=== PATIENT | female | born 1950 | race Caucasian/White ===

== ENCOUNTER 2023-07-01 09:14 | Emergency (ER) | payer OTHER, SELFPAY ==
[2023-07-01 09:23] VITALS: BP 176/89; PULSE 72; RESP 16; TEMP 36.4; O2SAT 100
--- NOTE | 2023-07-01 09:44 | ED.URI ---
HPI - URI/Sore Throat General Chief Complaint: Upper Respiratory Infection Stated Complaint: Sinus Pain Time Seen by Provider: 07/01/23 09:31 Source: patient and RN notes reviewed Mode of arrival: ambulatory Limitations: no limitations History of Present Illness HPI Narrative: Patient presents today with a 2 day history of severe headache, sinus pressure, postnasal drip, chest congestion. Denies fever cough. She has tried Sudafed and Tylenol with mild relief and currently rates her headache 6/10. Related Data Home Medications Medication Instructions Recorded Confirmed duloxetine 60 mg capsule,delayed 60 mg PO DAILY 07/01/23 07/01/23 release hydroxychloroquine 200 mg tablet 200 mg PO BID 07/01/23 07/01/23 levothyroxine 125 mcg tablet 125 mcg PO DAILY 07/01/23 07/01/23 simvastatin 20 mg tablet 20 mg PO DAILY 07/01/23 07/01/23 Allergies Allergy/AdvReac Type Severity Reaction Status Date / Time No Known Allergies Allergy Unverified 05/01/15 18:37 Review of Systems Review of Systems: CONSTITUTIONAL: Denies body aches, fever, chills, or sweats. EYES: Denies visual changes, redness, or discharge. ENT: Denies rhinorrhea, sore throat, or otalgia.+ sinus pressure, postnasal drip CARDIOVASCULAR: Denies chest pain, palpitations, or edema. RESPIRATORY: Denies cough or dyspnea.+ chest congestion GASTROINTESTINAL: Denies abdominal pain, nausea, vomiting, or diarrhea. GENITOURINARY: Denies dysuria or hematuria. SKIN: Denies rash, itching, or wounds. MUSCULOSKELETAL: Denies back pain, joint pain, or myalgia. NEUROLOGIC: Denies numbness, tingling, or weakness.+ headache PSYCH: Denies depression or anxiety. [facility] Past Medical History Medical History (Updated 07/01/23 @ 10:15 by Radhika Quintero, [facility], ) High cholesterol Hypothyroidism Comments At time of signature, I have reviewed and agree with nursing past medical, surgical, social and family history unless otherwise noted. Please see nursing chart for further information. There is no relevant family history pertinent to the presenting complaint Exam Narrative: GENERAL: Well-appearing, well-nourished, and in no acute distress. HEAD: Normocephalic, atraumatic. EYES: EOMI. No redness or drainage. Conjunctivae normal. ENT: Mucous membranes pink and moist. Nares mildly congested. No rhinorrhea. TMs normal bilaterally. Throat normal. Uvula midline. NECK: Normal AROM. Supple. No lymphadenopathy. CHEST: No respiratory distress. Clear to auscultation. HEART: Regular rate and rhythm. No murmur appreciated. EXTREMITIES: Normal range of motion. No edema. SKIN: Warm, dry, no rash. Capillary refill normal. Normal skin turgor. NEURO: No focal deficits. Alert and oriented x3. Gait steady. PSYCH: Normal affect. No signs of depression or anxiety. Course Course Level of Care: Express Care Visit Vital Signs Vital signs: Vital Signs Temperature 97.5 F L 07/01/23 09:23 Pulse Rate 72 07/01/23 09:23 Respiratory Rate 16 07/01/23 09:23 Blood Pressure 176/89 H 07/01/23 09:23 Pulse Oximetry 100 07/01/23 09:23 Oxygen Delivery Room Air 07/01/23 09:23 Temperature 97.5 F L 07/01/23 09:23 Pulse Rate 72 07/01/23 09:23 Respiratory Rate 16 07/01/23 09:23 Blood Pressure 176/89 H 07/01/23 09:23 Pulse Oximetry 100 07/01/23 09:23 Oxygen Delivery Room Air 07/01/23 09:23 Reviewed MDM - URI/Sore Throat MDM Narrative Medical decision making narrative: COVID negative. Symptoms likely viral. Will prescribe a short course of some prednisone to help with symptoms. Anticipatory guidance given. Differential Diagnosis Differential diagnosis: Likely upper respiratory infection, sinusitis, viral infection, influenza and other (COVID-19) Lab Data Attestation: I reviewed the patient's lab results. Lab results narrative: COVID negative Critical Care Time Critical Care Time Critical Care Time: No Discharge Plan Discharge Clinica
== END 2023-07-01 10:24 | disposition home or self-care (01) ==
PROVIDERS: Emergency Provider Nurse Practitioner; PCP Internal Medicine
DX: J06.9 Acute upper respiratory infection, unspecified (principal); E03.9 Hypothyroidism, unspecified; Z79.899 Other long term (current) drug therapy; Z20.822 Contact with and (suspected) exposure to COVID-19
CPT/HCPCS: 87426; 99213; G0463

== ENCOUNTER 2023-11-03 18:29 | Emergency (ER) | payer OTHER, SELFPAY ==
[2023-11-03 18:38] VITALS: BP 200/96; PULSE 68; RESP 16; TEMP 36.8; O2SAT 100
--- NOTE | 2023-11-03 18:42 | PC.NURSE ---
in br to obtain ua spec.
--- NOTE | 2023-11-03 18:45 | ED.FEMALEGU ---
HPI - Female Genitourinary General Chief complaint: Urogenital-Female Stated complaint: Urinary Problem Source: patient and RN notes reviewed Mode of arrival: ambulatory Limitations: no limitations History of Present Illness HPI Narrative: 73-year-old presented for complaint of abdominal bloating and lower abdominal cramping for about 2 weeks. BP elevated on arrival,which she attributes to increased stress. Endorses right leg cramping requesting magnesium supplement, and requests for pancreatic enzyme testing per internet research. LBM today. Endorses history of constipation which is improving with miralax. Denies hematuria, nausea, vomiting, flank pain, diarrhea, fevers or chills. Related Data Home Medications Medication Instructions Recorded Confirmed duloxetine 60 mg capsule,delayed 60 mg PO DAILY 07/01/23 07/01/23 release hydroxychloroquine 200 mg tablet 200 mg PO BID 07/01/23 07/01/23 levothyroxine 125 mcg tablet 125 mcg PO DAILY 07/01/23 07/01/23 simvastatin 20 mg tablet 20 mg PO DAILY 07/01/23 07/01/23 alprazolam 0.5 mg tablet mg 11/03/23 ibuprofen 800 mg tablet mg 11/03/23 Allergies Allergy/AdvReac Type Severity Reaction Status Date / Time No Known Allergies Allergy Unverified 11/03/23 18:33 Review of Systems Review of Systems: CONSTITUTIONAL: Denies body aches, fever, chills ENT: Denies rhinorrhea, congestion CARDIOVASCULAR: Denies chest pain, palpitations, or edema. RESPIRATORY: Denies cough or dyspnea. GASTROINTESTINAL: Endorses abdominal cramping Denies nausea, vomiting, diarrhea. hematochezia, melena, hematemesis GENITOURINARY: Denies dysuria, hematuria, or CVA tenderness. SKIN: Denies rash, itching, or wounds. MUSCULOSKELETAL: Denies back pain, joint pain, or myalgia. NEUROLOGIC: Denies headache, numbness, tingling, or weakness. All systems reviewed & are unremarkable except as noted in HPI and below PMFSH Past Medical History Medical History (Updated 11/03/23 @ 19:02 by Vivienne Pleitez APRN) High cholesterol Hypothyroidism Lupus Comments At time of signature, I have reviewed and agree with nursing past medical, surgical, social and family history unless otherwise noted. Please see nursing chart for further information. There is no relevant family history pertinent to the presenting complaint Exam Narrative: GENERAL: Well-appearing, and in no acute distress. EYES: EOMI. Conjunctivae normal. ENT: Mucous membranes pink and moist. CHEST: No respiratory distress. Clear to auscultation. HEART: Regular rate and rhythm. No murmur appreciated. Normal peripheral pulses. ABDOMEN: abd soft, nondistended, normal active bowel sounds. Nontender abdomen; No guarding, rebound tenderness, asymmetry EXTREMITIES: Normal range of motion. No edema. SKIN: Warm, dry, no rash. Capillary refill normal. Normal skin turgor. NEURO: No focal deficits. Alert and oriented x3. PSYCH: Normal affect. Tearful. Course Course Emergency Course: Patient is aware of diagnosis, understands and agrees to treatment plan. Anticipatory guidance given. Patient agrees to follow-up as directed and is aware of reasons to seek care at the emergency department. Portions of this record may have been created with voice recognition software Level of Care: Express Care Visit Vital Signs Vital signs: Vital Signs Temperature 98.3 F 11/03/23 18:38 Pulse Rate 68 11/03/23 18:38 Respiratory Rate 16 11/03/23 18:38 Blood Pressure 200/96 H 11/03/23 18:38 Pulse Oximetry 100 11/03/23 18:38 Oxygen Delivery Room Air 11/03/23 18:38 Temperature 98.3 F 11/03/23 18:38 Pulse Rate 68 11/03/23 18:38 Respiratory Rate 16 11/03/23 18:38 Blood Pressure 200/96 H 11/03/23 18:38 Pulse Oximetry 100 11/03/23 18:38 Oxygen Delivery Room Air 11/03/23 18:38 MDM - Female Genitourinary MDM Narrative Medical decision making narrative: Results of urine reviewed with patient. ' Rech
[2023-11-03 19:34] VITALS: BP 184/79
== END 2023-11-03 19:34 | disposition home or self-care (01) ==
PROVIDERS: Emergency Provider Nurse Practitioner Family; PCP Internal Medicine
DX: R03.0 Elevated blood-pressure reading, without diagnosis of hypertension (principal); R14.0 Abdominal distension (gaseous); R10.30 Lower abdominal pain, unspecified; E78.00 Pure hypercholesterolemia, unspecified; E03.9 Hypothyroidism, unspecified; M32.9 Systemic lupus erythematosus, unspecified
CPT/HCPCS: 81003; 87086; 99213; G0463